=== PATIENT | male | born 1970 | race Caucasian/White ===

== ENCOUNTER 2019-08-11 14:56 | Emergency (ER) | payer OTHER, SELFPAY ==
[~2019-08-11] VITALS: Ht 170.2 cm; Wt 86.2 kg
[2019-08-11 15:08] VITALS: BP 102/59
[2019-08-11] MEDS ORDERED: ACETAMINOPHEN EXTRA STRENGTH 500 MG TAB PO ONE (15:10)
--- NOTE | 2019-08-11 16:00 | NUR ---
pt c/o fatigue, nausea, blurred vision, and fever x 2 days. pt currently has fever in triage. tachycardia. pt denies vomiting, ab pain, or diarrhea or constipation. breath sounds clear bilterally. rr even and unlabored. neuro intact. gcs 15. pt alert and awake. ambulatory with steady gait. Addendum: 08/11/19 at 1737 by [email or web address] pt hr 90s, SR
--- NOTE | 2019-08-11 17:00 | NUR ---
nadr, pain 0/10
--- NOTE | 2019-08-11 17:00 | NUR ---
new temp 99.6
[2019-08-11 17:26] VITALS: BP 118/64
--- NOTE | 2019-08-11 17:26 | NUR ---
Patient discharged with v/s stable. Written and verbal after care instructions given and explained regarding possible covid 19. Patient alert, oriented and verbalized understanding of instructions. Ambulatory with steady gait. All questions addressed prior to discharge. ID band removed. Patient advised to follow up with PMD. Rx of ibuprofen given. Patient educated on indication of medication including possible reaction and side effects. Opportunity to ask questions provided and answered. instructed on safe distancing and hand hygiene instructed that he will be called if covid results are positive , pt states he lost his phone instructed pt that he can follow up with medical records [id number], 8am-5pm
== END 2019-08-11 17:26 | disposition home or self-care (01) ==
LOC: EEVIPCON 14:56 → MED 14:56
DX: J06.9 Acute upper respiratory infection, unspecified (principal); Z98.890 Other specified postprocedural states; Z20.828 Contact with and (suspected) exposure to other viral communicable diseases
CPT/HCPCS: 71045; 99284; U0003

== ENCOUNTER 2020-02-15 17:56 | Emergency (ER) | payer OTHER, SELFPAY ==
[~2020-02-15] VITALS: Ht 180.3 cm; Wt 83.9 kg
--- NOTE | 2020-02-15 17:56 | NUR ---
Patient [facility], triaged by RN and transferred to the overflow tent for further care.
[2020-02-15 18:00] VITALS: BP 126/68
--- NOTE | 2020-02-15 18:04 | NUR ---
PT PLACED IN TENT, VSS, NO ACUTE DISTRESS NOTED AT THIS TIME
--- NOTE | 2020-02-16 02:20 | NUR ---
SEEN AND EXAMINED BY BO
[2020-02-16 03:36] LABS: BASOPHILS # (AUTO) 0.1 K/uL (0.00-0.22); BASOPHILS % (AUTO) 1.3 % (0.0-2.0); EOSINOPHILS # (AUTO) 0.5 K/uL (0-0.4); EOSINOPHILS % (AUTO) 9.5 % (0.0-4.0); HEMATOCRIT 41.7 % (36-52); HEMOGLOBIN 14.4 g/dL (12.0-18.0); LYMPHOCYTES # (AUTO) 0.8 K/uL (2.0-11.5); LYMPHOCYTES % (AUTO) 17.1 % (20.5-51.1); MEAN CORPUSCULAR HEMOGLOBIN 31 pg (27-31); MEAN CORPUSCULAR HGB CONC 35 g/dL (33-37); MEAN CORPUSCULAR VOLUME 89.5 fL (80-94); MONOCYTES # (AUTO) 0.3 K/uL (0.8-1.0); MONOCYTES % (AUTO) 6.9 % (1.7-9.3); NEUTROPHILS # (AUTO) 3.2 K/uL (1.8-7.7); NEUTROPHILS % (AUTO) 65.2 % (42.2-75.2); PLATELET COUNT (AUTO) 191 K/uL (140-450); RED BLOOD CELL COUNT(AUTO) 4.66 MIL/uL (4.20-6.10); WHITE BLOOD COUNT (AUTO) 4.9 K/uL (4.8-10.8)
[2020-02-16 03:55] LABS: ALBUMIN 3.9 g/dL (3.4-5.0); ANION GAP 14.6 (8-16); CARBON DIOXIDE 26.2 mmol/L (21-32); CREATININE 0.7 mg/dL (0.6-1.3); POTASSIUM 3.8 mmol/L (3.5-5.1); TOTAL BILIRUBIN 1.1 mg/dL (0.0-1.0)
--- NOTE | 2020-02-16 04:15 | NUR ---
RESULTS BACK AND NOTED BY ERMD AND FOR D/C
[2020-02-16 04:30] VITALS: BP 119/78
--- NOTE | 2020-02-16 04:30 | NUR ---
Patient discharged with v/s stable. Written and verbal after care instructions given and explained. Patient alert, oriented and verbalized understanding of instructions. Ambulatory with steady gait. All questions addressed prior to discharge. ID band removed. Patient advised to follow up with PMD. Rx of TRIAMCINOLONE given. Patient educated on indication of medication including possible reaction and side effects. Opportunity to ask questions provided and answered.
== END 2020-02-16 04:30 | disposition home or self-care (01) ==
LOC: MED 17:56
DX: R07.9 Chest pain, unspecified (principal); L30.9 Dermatitis, unspecified
CPT/HCPCS: 36415; 71045; 80053; 84484; 85025; 93005; 99285

== ENCOUNTER 2021-10-23 10:23 | Emergency (ER) | payer OTHER ==
[~2021-10-23] VITALS: Ht 170.2 cm; Wt 92.1 kg
[2021-10-23 10:28] VITALS: BP 142/90
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
[2021-10-23] MEDS ORDERED: IBUPROFEN 600 MG TAB PO ONE (11:25)
[2021-10-23] MEDS ORDERED: IBUP-2213 PO (13:06)
--- NOTE | 2021-10-23 13:44 | NUR ---
PATIENT CALLED TO TRIAGE FOR REPEAT VITALS AND FOR DISCHARGE INSTRUCTIONS, PATIENT REQUESTED COPIES OF XRAY. AFTER RECEIVING COPIES OF XRAYS PATIENT BEGAN STATING HE WANTS MORE DETAILED DISCHARGE PAPERS. INSTRUCTIONS AND PRESCRIPTIONS WERE EXPLAINED TO HIM, PATIENT REFUSED TO LEAVE TRIAGE, SECURITY CALLED FOR ASSISTANCE.
[2021-10-23 13:50] VITALS: BP 113/73
--- NOTE | 2021-10-23 13:50 | NUR ---
Patient discharged with v/s stable. Written and verbal after care instructions given and explained. Patient alert, oriented. Ambulatory with steady gait. ATTEMPTED TO ADDRESS ALL QUESTIONS prior to discharge. ID band removed. Patient advised to follow up with PMD. Rx of MOTRIN given. Patient educated on indication of medication including possible reaction and side effects. Opportunity to ask questions provided and answered.
== END 2021-10-23 13:38 | disposition home or self-care (01) ==
LOC: MED 10:23
DX: S39.012A Strain of muscle, fascia and tendon of lower back, initial encounter (principal); S80.01XA Contusion of right knee, initial encounter; Z79.1 Long term (current) use of non-steroidal anti-inflammatories (NSAID); V79.59XA Passenger on bus injured in collision with other motor vehicles in traffic accident, initial encounter; Y93.89 Activity, other specified; Y92.410 Unspecified street and highway as the place of occurrence of the external cause; Y99.8 Other external cause status
CPT/HCPCS: 72110; 73562; 99284

== ENCOUNTER 2021-10-30 09:28 | Emergency (ER) | payer OTHER ==
[~2021-10-30] VITALS: Ht 170.2 cm; Wt 91.2 kg
[~2021-10-30 09:28] MED LIST: IBUP-2213 PO
[2021-10-30 09:37] VITALS: BP 114/74
--- NOTE | 2021-10-30 09:38 | NUR ---
PT ARGUMENTATIVE IN TRIAGE, REFUSING TO ANSWER ROUTINE QUESTIONS, REORIENTED
--- NOTE | 2021-10-30 09:42 | NUR ---
PT AMBULATED TO BED 07.
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
--- NOTE | 2021-10-30 10:16 | NUR ---
51/M PRESENTS TO ED WITH C/O LEFT LOWER BACK PAIN AND LEFT HEEL PAIN X1 WEEK. STATES WAS SEEN HERE FOR SYMPTOMS LAST WEEK BUT HAS NOT FOUND RELIEF, REPORTS TAKING RX OF IBUPROFEN WITH NO RELIEF. DENIES RECENT INJURY OR TRAUMA SINCE LAST VISIT.
--- NOTE | 2021-10-30 11:14 | NUR ---
Dr. Patel evaluating patient at bedside.
[2021-10-30] MEDS ORDERED: CYCL-711 PO (11:27)
[2021-10-30] MEDS ORDERED: LID5T TP (11:27)
--- NOTE | 2021-10-30 12:27 | NUR ---
Patient discharged with v/s stable. Written and verbal after care instructions ABOUT LOW BACK SPRAIN OR STRAIN given and explained. Patient alert, oriented and verbalized understanding of instructions. Ambulatory with steady gait. All questions addressed prior to discharge. ID band removed. Patient advised to follow up with PMD. Rx of FLEXERIL AND LIDODERM PATCH given. Patient educated on indication of medication including possible reaction and side effects. Opportunity to ask questions provided and answered.
== END 2021-10-30 12:25 | disposition home or self-care (01) ==
LOC: MED 09:28 → EEVIPCON 09:28 → MED 12:25
DX: M54.50 Low back pain, unspecified (principal)
CPT/HCPCS: 99283